=== PATIENT | female | born 1955 | race Caucasian/White ===

== ENCOUNTER → 2018-12-08 10:47 | Outpatient (CLI) | payer MEDICARE, OTHER, SELFPAY | PROVIDERS: PCP Student in an Organized Health Care Education/Training Program; Visit Provider Student in an Organized Health Care Education/Training Program | DX: Z71.1 Person with feared health complaint in whom no diagnosis is made (principal) | CPT/HCPCS: 36415; 86735; 86762 ==

== ENCOUNTER → 2019-01-04 14:59 | Outpatient (CLI) | payer MEDICARE, OTHER, SELFPAY ==
--- NOTE | 2019-01-04 15:03 | DI.MG.S_ITS ---
BILATERAL DIGITAL SCREENING MAMMOGRAM 3D/2D WITH CAD: 01/04/2019 CLINICAL: Routine screening. Comparison is made to exams dated: 08/15/2015 mammogram, 08/17/2016 mammogram - [facility], and 08/22/2017 mammogram - [facility] [place]. The tissue of both breasts is heterogeneously dense. This may lower the sensitivity of mammography. Current study was also evaluated with a Computer Aided Detection (CAD) system. No significant masses, calcifications, or other findings are seen in either breast. There has been no significant interval change. IMPRESSION: NEGATIVE There is no mammographic evidence of malignancy. A 1 year screening mammogram is recommended. This exam was interpreted at Station ID: [id number]. NOTE: For mammograms, a report in lay terms will be sent to the patient. Approximately 15% of breast malignancies will not be visualized mammographically. In the management of a palpable breast mass, a negative mammogram must not discourage biopsy of a clinically suspicious lesion. Electronically Signed By: Michel blandon/rakel:01/04/2019 16:38:59 letter sent: Normal Exam ACR BI-RADS Category 1: Negative 3341F
== END ==
PROVIDERS: PCP Student in an Organized Health Care Education/Training Program; Visit Provider Student in an Organized Health Care Education/Training Program
DX: Z12.31 Encounter for screening mammogram for malignant neoplasm of breast (principal); Z78.0 Asymptomatic menopausal state; Z90.722 Acquired absence of ovaries, bilateral
CPT/HCPCS: 77063; 77067; 77080

== ENCOUNTER 2019-03-02 08:03 | Day surgery (SDC) | payer MEDICARE, OTHER, SELFPAY ==
[2019-03-02 08:27] VITALS: BP 142/83; PULSE 80; RESP 16; TEMP 36.2; O2SAT 100; BMI 23.8
[2019-03-02] MEDS: SODIUM CHLORIDE 0.9% 1,000 ML 200 ML IV (08:41)
--- NOTE | 2019-03-02 10:11 | P.HP_ITS ---
History of Present Illness History of Present Illness Date Patient Seen: 03/02/19 Time Patient Seen: 10:11 Chief complaint: [id number] SCREENING COLONOSCOPY Narrative: This is a 63-year-old woman with history of screening colonoscopy 10 years ago. It was apparently normal per report. She is here for follow-up 10 year screening colonoscopy. She denies any melena, hematochezia, abdominal pain, unexplained weight loss, or family history relative to polyps or colon ca ncers. ROS Thirteen system review is negative other than as mentioned on scanned in questionnaire and in HPI. PE: GENERAL: Well groomed and cooperative. Appears stated age. Answers questions promptly and appropriately. Vital signs noted. HENT: Normocephalic, atraumatic. Hearing intact. Oral mucosa is pink and moist. EYES: Conjunctiva pink, sclera white, no periorbital swelling. CARDIOVASCULAR: Regular rate. No pedal edema. RESPIRATORY: Normal respiratory rate, breathing comfortably on room air. GASTROINTESTINAL: Abdomen soft and non-distended GENITALURINARY: No flank tenderness. MUSCULOSKELETAL: Equal tone and mass bilaterally. SKIN: Warm, dry, soft, appropriate color for ethnicity. No other lesions, rashes, or wounds. NEURO: Alert and Oriented X 3. No gross sensory deficits, or cognitive issues. PSYCH: Appropriate affect and mood. Patient History Medical History Actinic keratosis (Resolved 2009) Chicken pox (Resolved 1961) Fractures (Resolved 2004) Measles (Resolved 1960) Ovarian cyst (Resolved 2013) Shingles (Resolved 2015) Skin cancer (Resolved 2009) Surgical History Anesthesia (Resolved) History of (Resolved 1971) History of bilateral salpingo-oophorectomy (BSO) (Resolved 2013) History of colonoscopy (Resolved 2008) History of removal of skin mole (Resolved 2012) History of third molar tooth extraction (Resolved 1976) History of tubal ligation (Resolved 1978) Family & Social History Family History Father Bladder cancer Renal failure Skin cancer Smoker Heart disease Mother Smoker Hypertension Sister Hypertension Stroke Grandfather No problems noted. Grandmother Carotid artery disease Arteriosclerosis Grandfather No problems noted. Grandmother Abnormal blood sugar Social History: household members spouse Tobacco & Substance use: Smoking Status Unknown if ever smoked alcohol intake never Meds Home Medications and Allergies Home Medications Medication Instructions Recorded Confirmed Type aspirin 81 mg tablet,delayed 81 mg PO DAILY 03/02/18 03/02/19 History release coenzyme [id number]-[id number] E 100 mg-100 1 cap PO DAILY cap 03/02/18 03/02/19 History unit capsule melatonin 3 mg tablet 3 mg PO BEDTIME PRN 03/02/18 03/02/19 History multivitamin with iron-mineral 1 tab PO DAILY 03/02/18 03/02/19 History atorvastatin 20 mg tablet 20 mg PO DAILY #90 tab 12/18/18 03/02/19 Rx omega 5-lyr-[id number]-fish oil [Fish Oil] 1 cap PO DAILY 03/02/19 03/02/19 History Allergies Allergy/AdvReac Type Severity Reaction Status Date / Time No Known Drug Allergies Allergy Verified 03/02/19 08:22 Exam Vital Signs (past 8 hours): - 03/02/19 08:27 Temperature 97.2 F L Pulse Rate 80 Respiratory Rate 16 Blood Pressure 142/83 H Pulse Oximetry 100 Oxygen Delivery Method Room Air Assessment & Plan Assessment and plan (1) At average risk for colon cancer: Current visit: Yes Status: Acute (2) Colon cancer screening: Current visit: Yes Status: Acute Assessment & Plan narrative: Risks and benefits of colonoscopy and possible polypectomy were discussed with the patient. Risk of bleeding, perforation, need for additional procedures, risks of anesthesia were discussed. The patient desires to proceed with her colonoscopy procedure. Time Spent With Patient Time with patient: 15-24 minutes
[2019-03-02] MEDS: MIDAZOLAM 5 MG/5 ML VIAL IV (10:37)
--- NOTE | 2019-03-02 10:37 | PM.OP.ENDO ---
Operative Date/Time/Diagnoses Date of procedure: 03/02/19 Time of procedure: 10:38 Pre-op diagnosis: Average risk for colon cancer Post-op diagnosis: same Procedure & Clinicians Study performed: Screening colonoscopy Same procedure as scheduled: Yes Indications: Ten years since last screening colonoscpy Surgeon: Chelsea Lynne Procedure Notes SCOAP/Timeout: Performed Procedure in detail: The patient was brought to the room and placed in left lateral decubitus position with all bony prominences padded. A time-out was performed and then the patient was given procedural sedation starting with 3 mg of Versed and [100] mcg of fentanyl. Vitals were monitored throughout the procedure and remained stable. Once adequately sedated the procedure was begun. A rectal exam was performed revealing [no abnormalities]. The colonoscope was then introduced to the rectum and advanced to the cecum in the usual fashion. []The cecum was identified by the appendiceal orifice, the mucosal try fold, and the ileocecal valve. The scope was then retracted while rotating side to side and examining each mucosal fold. [] At the conclusion procedure retroflexion was performed and [small grade 1 internal hemorrhoids without stigmata of bleeding were seen]. The scope was then withdrawn from the rectum the procedure was concluded. The patient tolerated the procedure well was transferred to the PACU in stable condition. Scope withdrawal time: 7 Sedation minutes: 22 Specimen(s): none sent Complications: none Impression: Normla colon Post-procedure Recommendations: Colonscopy in 10 years Follow up: as needed Disposition: PACU
[2019-03-02] MEDS: fentaNYL 250 MCG/5 ML INJ IV (10:38)
[2019-03-02 10:43] VITALS: BP 139/85; PULSE 70; RESP 15; TEMP 36.3; O2SAT 100
[2019-03-02 10:58] VITALS: BP 139/85; PULSE 75; RESP 15; TEMP 36.8; O2SAT 98
== END 2019-03-02 11:10 | disposition home or self-care (01) ==
LOC: ENDO 08:06
PROVIDERS: Family Provider Student in an Organized Health Care Education/Training Program; PCP Student in an Organized Health Care Education/Training Program; Visit Provider Surgery
PROC: 0DJD8ZZ Inspection of Lower Intestinal Tract, Via Natural or Artificial Opening Endoscopic (ICD-10-PCS; CPT 45378; principal; 2019-03-02 09:45)
DX: Z12.11 Encounter for screening for malignant neoplasm of colon (principal); K64.0 First degree hemorrhoids
CPT/HCPCS: G0121; 99152; J2250; J3010

== ENCOUNTER → 2020-05-23 15:47 | Outpatient (CLI) | payer MEDICARE, OTHER, SELFPAY ==
[2020-05-23] MEDS: COVID-19 VACC #1, MRNA(MOD) 100 MCG/0.5 ML VIAL IM (15:54)
== END ==
PROVIDERS: Family Provider Student in an Organized Health Care Education/Training Program; PCP Student in an Organized Health Care Education/Training Program; Visit Provider Internal Medicine
DX: Z23 Encounter for immunization (principal)
CPT/HCPCS: 0011A; 91301

== ENCOUNTER → 2020-06-20 16:08 | Outpatient (CLI) | payer MEDICARE, OTHER, SELFPAY ==
[2020-06-20] MEDS: COVID-19 VACC #2, MRNA(MOD) 100 MCG/0.5 ML VIAL IM (16:19)
== END ==
PROVIDERS: Family Provider Student in an Organized Health Care Education/Training Program; PCP Student in an Organized Health Care Education/Training Program; Visit Provider Internal Medicine
DX: Z23 Encounter for immunization (principal)
CPT/HCPCS: 0012A; 91301

== ENCOUNTER → 2021-03-30 09:47 | Outpatient (CLI) | payer MEDICARE, OTHER, SELFPAY ==
--- NOTE | 2021-03-30 09:48 | DI.RAD.S_ITS ---
PROCEDURE: XR DEXA AXIAL SKELETON INDICATIONS: Bone Density Screening for osteoporosis/osteopenia COMPARISON: [facility], CR, XR DEXA AXIAL SKELETON, 01/04/2019, 15:23. FINDINGS: This blank DEXA report has been sent in error by the PACS system. The correct and complete report will be forthcoming in 1-2 days. Thank you for your patience and understanding. Dictated by: Tamy Waters MD, PhD on 03/30/2021 at 10:53 Approved by: Tamy Waters MD, PhD on 03/30/2021 at 10:54
== END ==
PROVIDERS: Family Provider Student in an Organized Health Care Education/Training Program; PCP Student in an Organized Health Care Education/Training Program; Referring Provider Student in an Organized Health Care Education/Training Program; Visit Provider Student in an Organized Health Care Education/Training Program
DX: Z13.820 Encounter for screening for osteoporosis; Z78.0 Asymptomatic menopausal state; Z90.722 Acquired absence of ovaries, bilateral
CPT/HCPCS: 77080

== ENCOUNTER → 2021-04-23 12:01 | Outpatient (CLI) | payer MEDICARE, OTHER, SELFPAY ==
--- NOTE | 2021-04-23 12:03 | DI.MG.S_ITS ---
BILATERAL DIGITAL SCREENING MAMMOGRAM 3D/2D WITH CAD: 04/23/2021 CLINICAL: Routine screening. Comparison is made to exams dated: 01/04/2019 mammogram - [facility], 08/22/2017 mammogram - [facility], and 08/17/2016 mammogram - [facility]. The tissue of both breasts is heterogeneously dense. This may lower the sensitivity of mammography. Current study was also evaluated with a Computer Aided Detection (CAD) system. No significant masses, calcifications, or other findings are seen in either breast. There has been no significant interval change. IMPRESSION: NEGATIVE There is no mammographic evidence of malignancy. A 1 year screening mammogram is recommended. This exam was interpreted at Station ID: [id number]. NOTE: For mammograms, a report in lay terms will be sent to the patient. Approximately 15% of breast malignancies will not be visualized mammographically. In the management of a palpable breast mass, a negative mammogram must not discourage biopsy of a clinically suspicious lesion. Electronically Signed By: Sotero shaw/rakel:04/23/2021 12:46:01 letter sent: Normal Exam ACR BI-RADS Category 1: Negative 3341F
== END ==
PROVIDERS: Family Provider Student in an Organized Health Care Education/Training Program; PCP Student in an Organized Health Care Education/Training Program; Referring Provider Student in an Organized Health Care Education/Training Program; Visit Provider Student in an Organized Health Care Education/Training Program
DX: Z12.31 Encounter for screening mammogram for malignant neoplasm of breast (principal)
CPT/HCPCS: 77063; 77067

== ENCOUNTER → 2022-06-03 09:03 | Outpatient (CLI) | payer MEDICARE, OTHER, SELFPAY ==
[2022-06-03 12:19] LABS: Vitamin D 25 Hydroxy (D3) 67.1 ng/mL (30.0-100.0)
[2022-06-03 12:43] LABS: Alanine Aminotransferase 29 IU/L (<35); Albumin 4.6 g/dL (3.5-5.0); Albumin Globulin Ratio 1.5 (1.0-2.8); Alkaline Phosphatase 91 U/L (38-126); Aspartate Aminotransferase 39 IU/L (14-36); BUN Creatinine Ratio 21.5 (6-22); Bilirubin Total 0.4 mg/dL (0.2-1.3); Blood Urea Nitrogen 20 mg/dL (7-17); Calcium 9.6 mg/dL (8.4-10.2); Carbon Dioxide 29 mmol/L (22-32); Chloride 102 mmol/L (98-107); Cholesterol 139 mg/dL (140-199); Estimated Glomerular Filt Rate > 60 mL/min (>60); Glucose 66 mg/dL (80-110); HDL Cholesterol 54 mg/dL (40-60); HEMOLYSIS < 15 (0-50); LDL Cholesterol Calculated 68 mg/dL (<100); Potassium 4.7 mmol/L (3.4-5.1); Sodium 140 mmol/L (137-145); Total Protein 7.6 g/dL (6.3-8.2); Triglycerides 83 mg/dL (35-150)
[2022-06-03 16:30] LABS: Hep C Virus Ab w/Reflex Quant NEGATIVE s/c (NEGATIVE)
== END ==
PROVIDERS: Family Provider Student in an Organized Health Care Education/Training Program; PCP Student in an Organized Health Care Education/Training Program; Referring Provider Student in an Organized Health Care Education/Training Program; Visit Provider Student in an Organized Health Care Education/Training Program
DX: Z00.00 Encounter for general adult medical examination without abnormal findings (principal); E78.2 Mixed hyperlipidemia; Z79.899 Other long term (current) drug therapy; Z78.9 Other specified health status; Z11.59 Encounter for screening for other viral diseases; E55.9 Vitamin D deficiency, unspecified
CPT/HCPCS: 36415; 80053; 80061; 82306; 86803

== ENCOUNTER → 2023-05-31 09:54 | Outpatient (CLI) | payer MEDICARE, OTHER, SELFPAY ==
[2023-05-31 10:56] LABS: Alanine Aminotransferase 26 IU/L (<35); Albumin 4.6 g/dL (3.5-5.0); Albumin Globulin Ratio 1.4 (1.0-2.8); Alkaline Phosphatase 93 U/L (38-126); Aspartate Aminotransferase 37 IU/L (14-36); BUN Creatinine Ratio 21.7 (6-22); Bilirubin Total 0.5 mg/dL (0.2-1.3); Blood Urea Nitrogen 18 mg/dL (7-17); Calcium 10.3 mg/dL (8.4-10.2); Carbon Dioxide 30 mmol/L (22-32); Chloride 102 mmol/L (98-107); Estimated Glomerular Filt Rate > 60 mL/min (>60); Globulin 3.4 g/dL (1.7-4.1); Glucose 99 mg/dL (80-110); HEMOLYSIS < 15 (0-50); Potassium 4.1 mmol/L (3.4-5.1); Sodium 141 mmol/L (137-145)
[2023-05-31 11:20] LABS: TSH w/ Reflex to FT4 0.29 uIU/mL (0.47-4.68)
[2023-05-31 20:59] LABS: Free T4, Direct Thyroxine 1.07 ng/dL (0.78-2.19)
== END ==
PROVIDERS: Family Provider Student in an Organized Health Care Education/Training Program; PCP Family Medicine; Referring Provider Family Medicine; Visit Provider Family Medicine
DX: Z00.00 Encounter for general adult medical examination without abnormal findings (principal); E78.5 Hyperlipidemia, unspecified
CPT/HCPCS: 36415; 80053; 84439; 84443

== ENCOUNTER → 2023-06-24 12:46 | Outpatient (CLI) | payer MEDICARE, OTHER, SELFPAY ==
--- NOTE | 2023-06-24 12:48 | DI.MG.S_ITS ---
BILATERAL DIGITAL SCREENING MAMMOGRAM 3D/2D WITH CAD: 06/24/2023 CLINICAL: Routine screening. Comparison is made to exams dated: 04/23/2021 mammogram, 01/04/2019 mammogram - [facility], and 08/22/2017 mammogram - [facility]. There are scattered areas of fibroglandular density in both breasts (category b / 25%-50% glandular tissue). Current study was also evaluated with a Computer Aided Detection (CAD) system. No significant masses, calcifications, or other findings are seen in either breast. There has been no significant interval change. IMPRESSION: NEGATIVE There is no mammographic evidence of malignancy. A 1 year screening mammogram is recommended. Based on the Tyrer Cuzick model (a risk assessment model) the patient's lifetime risk is 4.3% and her 10 year risk is 2.5%. According to the ACR, ACS, and NCCN guidelines, an annual breast MRI exam along with mammogram is recommended if the patient's lifetime risk is 20% or greater. This exam was interpreted at Station ID: [id number]. NOTE: For mammograms, a report in lay terms will be sent to the patient. Approximately 15% of breast malignancies will not be visualized mammographically. In the management of a palpable breast mass, a negative mammogram must not discourage biopsy of a clinically suspicious lesion. Electronically Signed By: Hardy millan/rakel:06/24/2023 20:41:49 letter sent: Normal Exam ACR BI-RADS Category 1: Negative 3341F
--- NOTE | 2023-06-24 12:48 | DI.RAD.S_ITS ---
Bone Density Report Name: REINALDO RIVERA Age: 67 Sex: Female Ethnicity: White Date of : 1955 Indication: postmenopausal; screening for osteoporosis; Referring Provider: ASPEN THURMAN Study: Bone densitometry was performed. Exam Date: June 24, 2023 Accession number: [id number] Bone Density: Region BMD T-score Z-score Classification AP Spine(L1, L2, L3) 1.392 3.4 5.4 Normal Femoral Neck (Left) 0.783 -0.6 1.2 Normal Total Hip (Left) 0.958 0.1 1.6 Normal Femoral Neck (Right) 0.718 -1.2 0.6 Osteopenia Total Hip (Right) 0.929 -0.1 1.4 Normal Total Hip Mean 0.943 0.0 1.5 Normal World Health Organization criteria for BMD impression classify patients as: Normal (T-score at or above -1.0), Osteopenia (T-score between -1.0 and -2.5), or Osteoporosis (T-score at or below -2.5). 10-year Fracture Risk(1): Major Osteoporotic Fracture 9.2% Hip Fracture 1.1% Reported Risk Factors: [place] (), Neck BMD=0.718, BMI=26.6 (1) FRAX(R) Version 3.08. Fracture probability calculated for an untreated patient. Fracture probability may be lower if the patient has received treatment. Previous Exams: -- Region Exam Age BMD T-score BMD Change BMD Change Date g/cm2 vs Baseline vs Previous -- AP Spine (L1-L3) 06/24/2023 67 1.392 3.4 0.090 (6.9%)# 0.022 (1.6%)# 03/30/2021 65 1.370 3.2 0.068 (5.2%)* 0.068 (5.2%)* 01/04/2019 63 1.302 2.6 Total Hip(Left) 06/24/2023 67 0.958 0.1 -0.003 (-0.3%)# 0.020 (2.1%)# 03/30/2021 65 0.938 0.0 -0.023 (-2.4%) -0.023 (-2.4%) 01/04/2019 63 0.961 0.2 Total Hip(Right) 06/24/2023 67 0.929 -0.1 0.022 (2.4%)# -0.014 (-1.5%)# 03/30/2021 65 0.943 0.0 0.036 (4.0%)* 0.036 (4.0%)* 01/04/2019 63 0.907 -0.3 -- *Denotes significance at 95% confidence level, LSC for AP Spine = 0.022 g/cm2, LSC for Total Hip = 0.027 g/cm2 Rate of change results reflect vertebral levels common to all scans # Denotes dissimilar scan types or analysis methods Impression: The patient has low bone mass, based on the Right Femoral Neck T-score. The patient has an estimated ten-year risk of hip fracture of 1.1% and an estimated ten-year risk of major fracture of 9.2%, based on the WHO FRAX algorithm. No significant bone loss was observed. Discussion: BONE DENSITY IS LOW AT ONE OR MORE SKELETAL SITES. This patient's lowest T-score is low at one or more skeletal sites. It meets the World Health Organization's (WHO) criteria for low bone mass (T-score between -1.0 and -2.5). The patient's 10-year risk of fracture as calculated by FRAX is less than the threshold where pharmacological therapy is recommended by the National Osteoporosis Foundation (NOF). However, all treatment decisions require clinical judgment and consideration of individual patient factors, including patient preferences, comorbidities, previous drug use, risk factors not captured in the FRAX model (e.g., frailty, falls, vitamin D deficiency, increased bone turnover, interval significant decline in bone density) and possible under or overestimation of fracture risk by FRAX. The patient should follow a healthful lifestyle (good nutrition with adequate calcium and vitamin D, and appropriate weight-bearing exercise). Follow-Up: Consider repeating this study in 2 to 3 years to reassess this patient's status, or sooner if there is some new clinical indication. Reported by: CHANTAL NICHOLSON M.D. on 06/24/2023 1:12:00 PM.
== END ==
PROVIDERS: Family Provider Student in an Organized Health Care Education/Training Program; PCP Family Medicine; Referring Provider Family Medicine; Visit Provider Family Medicine
DX: Z12.31 Encounter for screening mammogram for malignant neoplasm of breast (principal); M85.89 Other specified disorders of bone density and structure, multiple sites; R92.323 Mammographic fibroglandular density, bilateral breasts
CPT/HCPCS: 77063; 77067; 77080

== ENCOUNTER → 2024-01-31 09:31 | Outpatient (CLI) | payer MEDICARE, OTHER, SELFPAY ==
[2024-01-31 12:21] LABS: Alanine Aminotransferase 25 IU/L (<35); Albumin 4.5 g/dL (3.5-5.0); Albumin Globulin Ratio 1.4 (1.0-2.8); Alkaline Phosphatase 102 U/L (38-126); Aspartate Aminotransferase 43 IU/L (14-36); BUN Creatinine Ratio 20.7 (6-22); Bilirubin Total 0.4 mg/dL (0.2-1.3); Blood Urea Nitrogen 18 mg/dL (7-17); Calcium 9.4 mg/dL (8.4-10.2); Carbon Dioxide 27 mmol/L (22-32); Chloride 105 mmol/L (98-107); Cholesterol 155 mg/dL (140-199); Estimated Glomerular Filt Rate > 60 mL/min (>60); Globulin 3.2 g/dL (1.7-4.1); Glucose 85 mg/dL (80-110); HDL Cholesterol 57 mg/dL (40-60); HEMOLYSIS < 15 (0-50); LDL Cholesterol Calculated 73 mg/dL (<100); Potassium 4.9 mmol/L (3.4-5.1); Sodium 140 mmol/L (137-145); Total Protein 7.7 g/dL (6.3-8.2); Triglycerides 124 mg/dL (35-150)
== END ==
PROVIDERS: Family Provider Student in an Organized Health Care Education/Training Program; PCP Family Medicine; Referring Provider Family Medicine; Visit Provider Family Medicine
DX: E78.5 Hyperlipidemia, unspecified (principal); R03.0 Elevated blood-pressure reading, without diagnosis of hypertension
CPT/HCPCS: 36415; 80053; 80061

== ENCOUNTER → 2024-06-25 08:14 | Outpatient (CLI) | payer MEDICARE, OTHER, SELFPAY ==
--- NOTE | 2024-06-25 08:15 | DI.MG.S_ITS ---
BILATERAL DIGITAL SCREENING MAMMOGRAM 3D/2D WITH CAD: 06/25/2024 CLINICAL: Routine screening. Comparison is made to exams dated: 06/24/2023 mammogram, 04/23/2021 mammogram, and 01/04/2019 mammogram - [facility]. There are scattered areas of fibroglandular density (category b / 25%-50% glandular tissue). Current study was also evaluated with a Computer Aided Detection (CAD) system. No significant masses, calcifications, or other findings are seen in either breast. There has been no significant interval change. IMPRESSION: NEGATIVE There is no mammographic evidence of malignancy. A 1 year screening mammogram is recommended. Based on the Tyrer Cuzick model (a risk assessment model) the patient's lifetime risk is 4.1% and her 10 year risk is 2.6%. According to the ACR, ACS, and NCCN guidelines, an annual breast MRI exam along with mammogram is recommended if the patient's lifetime risk is 20% or greater. This exam was interpreted at Station ID: [id number]. NOTE: For mammograms, a report in lay terms will be sent to the patient. Approximately 15% of breast malignancies will not be visualized mammographically. In the management of a palpable breast mass, a negative mammogram must not discourage biopsy of a clinically suspicious lesion. Electronically Signed By: Liya romero/rakel:06/25/2024 16:16:57 letter sent: Normal Exam ACR BI-RADS Category 1: Negative
== END ==
PROVIDERS: Family Provider Student in an Organized Health Care Education/Training Program; PCP Family Medicine; Referring Provider Family Medicine; Visit Provider Family Medicine
DX: Z12.31 Encounter for screening mammogram for malignant neoplasm of breast (principal)
CPT/HCPCS: 77063; 77067